=== PATIENT | female | born 1940 | race Caucasian/White ===

== ENCOUNTER 2018-03-07 09:31 | Outpatient (CLI) | payer MEDICARE, BC ==
[2018-03-07] MEDS ORDERED: ISOVUE-370 76%-LOCM 1 ML ONE (14:49)
== END 2018-03-07 09:32 | disposition home or self-care (01) ==
LOC: BICCT 09:31
PROVIDERS: ATTEND Internal Medicine Cardiovascular Disease
DX: I73.9 Peripheral vascular disease, unspecified (principal); I77.1 Stricture of artery; R94.31 Abnormal electrocardiogram [ECG] [EKG]
CPT/HCPCS: 70498